=== PATIENT | female | born 1980 | race Caucasian/White ===

== ENCOUNTER 2017-12-02 23:32 | Observation (INO) | payer BC, OTHER ==
[~2017-12-02] VITALS: Ht 157.5 cm; Wt 66.0 kg
[2017-12-03 00:25] LABS: BASOPHILS # (AUTO) 0.03 x10^3/uL (0-0.1); BASOPHILS % (AUTO) 0 % (0-1); EOSINOPHILS # (AUTO) 0.23 x10^3/uL (0-0.4); EOSINOPHILS % (AUTO) 3 % (1-7); LYMPHOCYTES # (AUTO) 1.77 x10^3/uL (1-3.4); LYMPHOCYTES % (AUTO) 19 % (22-44); MD NO; MEAN CORPUSCULAR HEMOGLOBIN 30.5 pg (27.0-34.8); MEAN CORPUSCULAR HGB CONC 34.4 g/dL (32.4-35.8); MEAN CORPUSCULAR VOLUME 88.7 fL (80-100); MEAN PLATELET VOLUME 8.7 fL (7.4-10.4); MONOCYTES # (AUTO) 0.41 x10^3/uL (0.2-0.8); MONOCYTES % (AUTO) 4 % (2-9); NEUTROPHILS # (AUTO) 6.87 x10^3/uL (1.8-6.8); NEUTROPHILS % (AUTO) 74 % (42-75); PLATELET COUNT 224 x10^3/uL (130-400); RED BLOOD COUNT 3.96 x10^6/uL (3.82-5.3); RED CELL DISTRIBUTION WIDTH 12.7 % (9.6-15.2)
== END 2017-12-03 17:26 | disposition home or self-care (01) ==
LOC: LDOP 23:32 → LDIP 12-03 03:35
PROVIDERS: ADMIT Obstetrics & Gynecology Gynecology; ATTEND Obstetrics & Gynecology Gynecology
DX: O46.92 Antepartum hemorrhage, unspecified, second trimester (principal); O26.852 Spotting complicating pregnancy, second trimester; Z3A.17 17 weeks gestation of pregnancy
CPT/HCPCS: 36415; 59025; 76805; 76815; 85025; 99201; G0378; G0463

== ENCOUNTER 2018-04-20 00:04 | Inpatient (IN) | payer OTHER ==
[~2018-04-20] VITALS: Ht 157.5 cm; Wt 75.0 kg
[2018-04-20] MEDS ORDERED: LACTATED RINGERS 1,000 ML IV SCH (02:51)
[2018-04-20] MEDS ORDERED: D5%-LACTATED RINGERS 1,000 ML IV SCH (02:51)
[2018-04-20] MEDS ORDERED: OXYTOCIN 30U/ 0.9% NaCL 500ML 500 ML IV ONE (02:51)
[2018-04-20] MEDS ORDERED: OXYTOCIN 30U/ 0.9% NaCL 500ML 500 ML ONE (02:52)
[2018-04-20] MEDS ORDERED: NEWBORN KIT ONE (02:53)
[2018-04-20] MEDS ORDERED: FENTANYL PF 100 MCG/2ML IVPush PRN (03:00)
[2018-04-20] MEDS ORDERED: CALCIUM CARBONATE 500 MG TAB.CHEW PO PRN (03:00)
[2018-04-20] MEDS ORDERED: FENTANYL PF 100 MCG/2ML IV PRN (03:00)
[2018-04-20] MEDS ORDERED: TERBUTALINE 1 MG/ML, 1ML IVPush PRN (03:00)
[2018-04-20] MEDS ORDERED: ONDANSETRON 2MG/ML, 2ML IVPush PRN (03:00)
[2018-04-20 03:30] LABS: BASOPHILS # (AUTO) 0.01 x10^3/uL (0-0.1); BASOPHILS % (AUTO) 0 % (0-1); EOSINOPHILS # (AUTO) 0.11 x10^3/uL (0-0.4); EOSINOPHILS % (AUTO) 1 % (1-7); LYMPHOCYTES # (AUTO) 0.89 x10^3/uL (1-3.4); LYMPHOCYTES % (AUTO) 5 % (22-44); MD NO; MEAN CORPUSCULAR HEMOGLOBIN 30.3 pg (27.0-34.8); MEAN CORPUSCULAR HGB CONC 34.2 g/dL (32.4-35.8); MEAN CORPUSCULAR VOLUME 88.7 fL (80-100); MEAN PLATELET VOLUME 9.7 fL (7.4-10.4); MONOCYTES # (AUTO) 0.62 x10^3/uL (0.2-0.8); MONOCYTES % (AUTO) 4 % (2-9); NEUTROPHILS # (AUTO) 15.22 x10^3/uL (1.8-6.8); NEUTROPHILS % (AUTO) 90 % (42-75); PLATELET COUNT 164 x10^3/uL (130-400); RED BLOOD COUNT 3.92 x10^6/uL (3.82-5.3); RED CELL DISTRIBUTION WIDTH 13.7 % (9.6-15.2)
[2018-04-20] MEDS ORDERED: SODIUM CHLORIDE NASAL SPRAY 45ML BOTTLE NAS PRN (10:00)
[2018-04-20] MEDS ORDERED: FENTANYL/BUPIV./NS/PF 250 ML EPIDCONT SCH (22:17)
[2018-04-20] MEDS ORDERED: BUPIVACAINE 0.25% ONE (22:26)
[2018-04-20] MEDS ORDERED: LIDOCAINE/PF 1.5%-EPI 1:200K, 30ML ONE (22:30)
[2018-04-20] MEDS ORDERED: FENTANYL PF 500 MCG, BUPIVACAINE/PF 0.5%, 30ML 62.5 ML in SODIUM CHLORIDE 0.9% 177.5 ML EPIDCONT SCH (22:30)
[2018-04-20] MEDS ORDERED: FENTANYL/BUPIV./NS/PF 250 ML EPIDCONT ONE (22:30)
[2018-04-21] MEDS ORDERED: OXYTOCIN 30U/ 0.9% NaCL 500ML 500 ML IV PRN (00:33)
[2018-04-21] MEDS ORDERED: FENTANYL/BUPIV./NS/PF 250 ML EPIDCONT SCH (00:42)
[2018-04-21] MEDS: LACTATED RINGERS 1,000 ML IV SCH ×2 (00:42→08:42)
[2018-04-21] MEDS ORDERED: LACTATED RINGERS 1,000 ML IVBOLUS PRN (01:00)
[2018-04-21] MEDS ORDERED: NALOXONE 0.4 MG/ML, 1ML IVPush PRN (01:00)
[2018-04-21] MEDS ORDERED: EPHEDRINE 50 MG/ML, 1ML IVPush PRN (01:00)
[2018-04-21] MEDS ORDERED: METOCLOPRAMIDE 5 MG/ML, 2ML ONE (06:08)
[2018-04-21] MEDS ORDERED: SODIUM CITRATE/CITRIC ACID 30 ML UDC ONE (06:08)
[2018-04-21] MEDS ORDERED: OXYTOCIN 30U/ 0.9% NaCL 500ML 500 ML ONE (09:20)
[2018-04-21] MEDS ORDERED: IBUPROFEN 800 MG TABLET ONE (09:20)
[2018-04-21] MEDS: OXYTOCIN 30U/ 0.9% NaCL 500ML 500 ML IV SCH ×2 (09:29→19:09)
[2018-04-21] MEDS ORDERED: MISOPROSTOL 200 MCG TABLET PR PRN (09:30)
[2018-04-21] MEDS: IBUPROFEN 800 MG TABLET PO PRN ×2 (09:37→18:10)
[2018-04-21 11:00] VITALS: BP 94/56
[2018-04-21 16:20] VITALS: BP 88/49
[2018-04-21 16:33] LABS: MD YES; MEAN CORPUSCULAR HEMOGLOBIN 30.1 pg (27.0-34.8); MEAN CORPUSCULAR HGB CONC 33.5 g/dL (32.4-35.8); MEAN PLATELET VOLUME 9.6 fL (7.4-10.4); PLATELET COUNT 175 x10^3/uL (130-400); RED BLOOD COUNT 3.23 x10^6/uL (3.82-5.3); RED CELL DISTRIBUTION WIDTH 13.7 % (9.6-15.2)
[2018-04-21 17:39] LABS: BAND#(MANUAL) 2.17 x10^3/uL; BANDS%(MANUAL) 10 % (0-7); LYMPH#(MANUAL) 0.43 x10^3/uL (1-3.4); LYMPHS% (MANUAL) 2 % (22-44); MONOS#(MANUAL) 0.65 x10^3/uL (0.3-2.7); MONOS% (MANUAL) 3 % (2-9); SEG#(MANUAL) 18.45 x10^3/uL (1.8-6.8); SEGS% (MANUAL) 85 % (42-75)
[2018-04-21 17:40] LABS: <PLATELET ESTIMATE> ADEQUATE; <PLT MORPHOLOGY> NORMAL PLT MORPH; <RBC MORPHOLOGY> NORMAL
[2018-04-21] MEDS: OXYcodone/APAP 5/325MG TABLET PO PRN ×2 (18:10→23:04)
[2018-04-21 20:00] VITALS: BP 87/50
[2018-04-21] MEDS: DOCUSATE 100 MG CAPSULE PO PRN (23:04)
[2018-04-22] VITALS: BP 90/52
[2018-04-22] MEDS: IBUPROFEN 600 MG TABLET PO PRN ×4 (01:21→19:50)
[2018-04-22 04:35] VITALS: BP 95/60
[2018-04-22] MEDS: OXYcodone/APAP 5/325MG TABLET PO PRN ×5 (04:47→23:08)
[2018-04-22] MEDS: OXYTOCIN 30U/ 0.9% NaCL 500ML 500 ML IV SCH ×2 (05:09→15:09)
[2018-04-22 07:30] VITALS: BP 90/52
[2018-04-22] MEDS: PRENATAL VIT/IRON/FA 1 EACH TABLET PO SCH (07:44)
[2018-04-22] MEDS: DOCUSATE 100 MG CAPSULE PO PRN ×2 (07:44→19:51)
[2018-04-22 19:30] VITALS: BP 92/58
[2018-04-23] MEDS: OXYTOCIN 30U/ 0.9% NaCL 500ML 500 ML IV SCH ×2 (01:09→11:09)
[2018-04-23] MEDS: IBUPROFEN 600 MG TABLET PO PRN ×2 (02:41→07:49)
[2018-04-23] MEDS: OXYcodone/APAP 5/325MG TABLET PO PRN ×3 (04:15→13:07)
[2018-04-23 07:30] VITALS: BP 95/54
[2018-04-23] MEDS: DOCUSATE 100 MG CAPSULE PO PRN (07:49)
[2018-04-23] MEDS: PRENATAL VIT/IRON/FA 1 EACH TABLET PO SCH (07:49)
[2018-04-23] MEDS ORDERED: IBUP-1222 PO (08:38)
[2018-04-23] MEDS ORDERED: OXYC-302 PO (08:40)
== END 2018-04-23 14:38 | disposition home or self-care (01) | DRG 807 ==
LOC: LDOP 00:04 → LDIP 02:32 → 2NW 04-21 11:05
PROVIDERS: ADMIT Obstetrics & Gynecology Gynecology; ATTEND Obstetrics & Gynecology Gynecology
PROC: 10907ZC Drainage of Amniotic Fluid, Therapeutic from Products of Conception, Via Natural or Artificial Opening (ICD-10-PCS; 2018-04-20)
PROC: 3E033VJ Introduction of Other Hormone into Peripheral Vein, Percutaneous Approach (ICD-10-PCS; 2018-04-20)
PROC: 10E0XZZ Delivery of Products of Conception, External Approach (ICD-10-PCS; principal; 2018-04-21)
PROC: 0KQM0ZZ Repair Perineum Muscle, Open Approach (ICD-10-PCS; 2018-04-21)
PROC: 3E0R3BZ Introduction of Anesthetic Agent into Spinal Canal, Percutaneous Approach (ICD-10-PCS; 2018-04-21)
PROC: 00HU33Z Insertion of Infusion Device into Spinal Canal, Percutaneous Approach (ICD-10-PCS; 2018-04-21)
DX: O76 Abnormality in fetal heart rate and rhythm complicating labor and delivery (principal); Z37.0 Single live birth; Z88.2 Allergy status to sulfonamides; Z88.6 Allergy status to analgesic agent; Z91.013 Allergy to seafood; O70.1 Second degree perineal laceration during delivery; Z3A.37 37 weeks gestation of pregnancy; O99.284 Endocrine, nutritional and metabolic diseases complicating childbirth; E03.9 Hypothyroidism, unspecified; O99.62 Diseases of the digestive system complicating childbirth; O99.344 Other mental disorders complicating childbirth; K58.9 Irritable bowel syndrome, unspecified; F98.8 Other specified behavioral and emotional disorders with onset usually occurring in childhood and adolescence
CPT/HCPCS: 36415; 85025; 86850; 86900; G0378; J3490; J2590; J3010